=== PATIENT | female | born 1945 | race Caucasian/White ===

== ENCOUNTER 2017-04-03 08:59 | Emergency (ER) | payer OTHER ==
[2017-04-03 09:16] VITALS: BP 157/66
--- NOTE | 2017-04-03 09:30 | ED Physician Documentation ---
Eye Problem - HISTORIAN Historian: patient - HPI Stated Complaint: Rigtht eye redness, itching Chief Complaint: Eye Problems Associated symptoms: itching, redness Location: right eye Severity: mild Apparent Injury: no Further Comments: yes (71 year old female patient presents with complaint of left eye itching and redness. States symptoms started yesterday, reports "flushing eye with steril water multiple times yesterday". States eye looks much better.) - ROS CONST: no problems MS/SKIN/LYMPH: denies: weakness, numbness, ankle swelling, leg swelling CVS/RESP: none EYES/ENT: none GI/: denies: nausea, vomiting NEURO: denies: headache - PAST HX Past History: other (hypothyroidism) Allergies/Adverse Reactions: Allergies Allergy/AdvReac Type Severity Reaction Status Date / Time amoxicillin Allergy Verified 04/03/17 09:10 erythromycin base Allergy Verified 04/03/17 09:10 Home Medications: Ambulatory Orders Medication Instructions Recorded Thyroid,Pork [[facility] Thyroid] 120 mg PO DAILY 04/03/17 - SOCIAL HX Smoking History: non-smoker - FAMILY HX Family History: denies: none - VITAL SIGNS Vital Signs: Vital Signs Temp Pulse Resp BP Pulse Ox 98.2 F 81 19 157/66 98 04/03/17 09:12 04/03/17 09:12 04/03/17 09:12 04/03/17 09:12 04/03/17 09:12 - REVIEWED ASSESSMENTS Nursing Assessment Reviewed: Yes Vitals Reviewed: Yes Progress - Progress Progress: Explained conjunctivits is likely due to virus. Patient concerned it will get worse on her camping trip. Prescription written for Polytrim, instructed patient not to fill unless eye became worse with erythema and drainage. Eye Problem Physical Exam - Physical Exam General Appearance: no acute distress Examined with Slit Lamp: No Eyelids: nml inspection Conjunctiva and Sclera: other (right eye with mild erythema; no drainage. ). No : injected (R), exudate (R) EOM: intact Pupils: equal Skin: nml color, warm, skin intact Respiratory: no resp distress CVS: reg rate & rhythm Neuro/Psych: oriented x3, neuro intact, mood/affect nml, CN's nml as tested Discharge Clincal Impression: Conjunctivitis Qualifiers: Conjunctivitis type: acute Acute conjunctivitis type: unspecified Laterality: right Qualified Code(s): H10.31 - Unspecified acute conjunctivitis, right eye Condition: Stable Disposition: 01 HOME, SELF-CARE Decision to Admit: NO Decision Time: 09:29
== END 2017-04-03 09:32 | disposition home or self-care (01) ==
LOC: ED 08:59
DX: H10.31 Unspecified acute conjunctivitis, right eye (principal)
CPT/HCPCS: 99283